=== PATIENT | female | born 1985 | race Asian ===

== ENCOUNTER 2019-02-02 21:48 | Emergency (ER) | payer MEDICAID, OTHER ==
[~2019-02-02] VITALS: Ht 162.6 cm; Wt 75.1 kg
[2019-02-02 21:58] VITALS: Ht 162.6 cm; Wt 75.1 kg
[2019-02-02] MEDS ORDERED: ACETAMINOPHEN 500 MG TAB PO STA (23:10)
[2019-02-02] MEDS ORDERED: PROMETHAZINE/DM (CUP) PO ONE (23:30)
[2019-02-03] MEDS ORDERED: CEPH-443 PO (00:35)
[2019-02-03] MEDS ORDERED: D-ME473S2 PO (00:36)
--- NOTE | 2019-02-03 00:39 | ERD ---
ER Documentation Chief Complaint Chief Complaint fever/sore throat/productive cough x1mth; body pain/malaise x am; 21wks prg HPI 33-year-old female anyone first week of presents with fever, cough, body aches for the past month. In addition states that a sore throat since this morning. Denies any treatments. Denies any dysuria, hematuria, back pain, flank pain, vomiting, abdominal pain, diarrhea. ROS All systems reviewed and are negative except as per history of present illness. Medications Home Meds Active Scripts Dextromethorphan Hb-Promethazine Hcl* (Promethazine DM* Syrup) 473 Ml Syrup, 5 ML PO Q6 PRN for COUGH, #4 ML Prov:MAYRA KENNEY 02/03/19 Cephalexin* (Keflex*) 500 Mg Capsule, 500 MG PO BID for 14 Days, CAP Prov:MAYRA KENNEY 02/03/19 Allergies Allergies: Coded Allergies: No Known Allergy (Unverified , 02/02/19) PMhx/Soc Medical and Surgical Hx: pt denies Medical Hx, pt denies Surgical Hx Hx Alcohol Use: No Hx Substance Use: No Hx Tobacco Use: No FmHx Family History: No diabetes, No coronary disease, No other Physical Exam Vitals Vital Signs Date Temp Pulse Resp B/P (MAP) Pulse Ox O2 O2 Flow FiO2 Time Delivery Rate 02/02/19 99.9 99 20 110/59 96 21:58 (76) Physical Exam Const: No acute distress Head: Atraumatic Eyes: Normal Conjunctiva ENT: Normal External Ears, Nose and Mouth. Tonsils are nonedematous erythematous bilaterally without x-rays. Uvula is midline. There are no peritonsillar masses noted. Neck: Full range of motion. No meningismus. Resp: Clear to auscultation bilaterally Cardio: Regular rate and rhythm, no murmurs Abd: Soft, non tender, non distended. Normal bowel sounds Skin: No petechiae or rashes Back: No midline or flank tenderness Ext: No cyanosis, or edema Neur: Awake and alert Psych: Normal Mood and Affect Results 24 hrs Laboratory Tests Test 02/02/19 23:18 Urine Color COLORLESS Urine Clarity CLEAR Urine pH 7.0 Urine Specific Hector 1.005 Urine Ketones NEGATIVE mg/dL Urine Nitrite NEGATIVE mg/dL Urine Bilirubin NEGATIVE mg/dL Urine Urobilinogen NEGATIVE mg/dL Urine Leukocyte Esterase 1+ Kelly/ul Urine Microscopic RBC 1 /HPF Urine Microscopic WBC 2 /HPF Urine Squamous Epithelial Cells FEW /HPF Urine Bacteria FEW /HPF Urine Hemoglobin 1+ mg/dL Urine Glucose NEGATIVE mg/dL Urine Total Protein NEGATIVE mg/dl Monoscreen Negative Current Medications Medications Dose Sig/Rigo Start Time Status Last (Trade) Ordered Route PRN Stop Time Admin Dose Reason Admin 1,000 mg ONCE STAT 02/02/19 DC 02/02/19 Acetaminophen PO 23:10 23:39 (Tylenol 02/02/19 23:13 Tab) Promethazine 5 ml ONCE ONCE 02/02/19 DC 02/02/19 HCl/ PO 23:30 23:38 Dextromethorp 02/02/19 23:31 salmon (Phenergan-Dm ) Ceftriaxone 1 gm ONCE ONCE 02/03/19 Sodium IM 01:00 (Rocephin) 02/03/19 01:01 Lidocaine 5 ml ONCE ONCE 02/03/19 (Xylocaine INJ 01:00 1% (Mpf)) 02/03/19 01:01 Procedures/MDM MDM: Given patient's complaint of sore throat and fevers decision was made to do Monospot. It was negative. In addition rapid strep was also negative. However, UA showed UTI so patient will be treated for complicated UTI with ceftriaxone and 14 days of Keflex. I have low suspicion for pyelonephritis, appendicitis, cholecystitis, Bryan's angina, retropharyngeal abscess, epiglottitis, or any other emergent condition. Patient advised to take Tylenol for discomfort. Patient discharged with strict ER precautions. Patient advised to follow up with PMD. All questions answered at discharge. Departure Diagnosis: Primary Impression: UTI (urinary tract infection) Additional Impression: URI (upper respiratory infection) Condition: Stable Patient Instructions: Understanding Urinary Tract Infections (UTIs), Preventing Common Respiratory Infections Referrals: [facility] YOU HAVE RECEIVED A MEDICAL SCREENING EXAM AND THE RESULTS INDICATE THAT YOU DO NOT HAVE A CONDITION THAT REQUIRES URGENT TREATMENT IN THE EMERGENCY DEPARTMENT. FURTHER EVALUATION AND TREATMENT OF YOUR CONDITION CAN WAIT UNTIL YOU ARE SEEN IN YOUR DOCTORS OFFICE WITHIN THE NEXT 1-2 DAYS. IT IS YOUR RESPONSIBILITY TO MAKE AN APPOINTMENT FOR FOLOW-UP CARE. IF YOU HAVE A PRIMARY DOCTOR --you should call your primary doctor and schedule an appointment IF YOU DO NOT HAVE A PRIMARY DOCTOR YOU CAN CALL OUR PHYSICIAN REFERRAL HOTLINE AT IF YOU CAN NOT AFFORD TO SEE A PHYSICIAN YOU CAN CHOSE FROM THE FOLLOWING [facility] [address] [facility] [address] [facility] [address] [facility] [address] [facility] [address] [facility]. [facility] [address] Additional Instructions: FOLLOW UP WITH YOUR PRIMARY CARE PHYSICIAN TOMORROW.Return to this facility if you are not improving as expected. MAYRA KENNEY February 03, 2019 00:39
[2019-02-03] MEDS ORDERED: LIDOCAINE 1% (MPF) 5 ML VIAL INJ ONE (01:00)
[2019-02-03] MEDS ORDERED: CEFTRIAXONE 1 GM INJ IM ONE (01:00)
[2019-02-03 01:08] VITALS: BP 95/52; PULSE 88; RESP 19
== END 2019-02-03 01:15 | disposition home or self-care (01) ==
LOC: FTE 21:48
DX: O23.42 Unspecified infection of urinary tract in pregnancy, second trimester (principal); J06.9 Acute upper respiratory infection, unspecified; O99.512 Diseases of the respiratory system complicating pregnancy, second trimester; Z3A.21 21 weeks gestation of pregnancy
CPT/HCPCS: 36415; 81001; 86308; 87086; 87880; 96372; J0696; Z7502; Z7610